=== PATIENT | female | born 1980 | race Two or more races ===

== ENCOUNTER 2017-06-21 22:40 | Emergency (ER) | payer MEDICAID ==
[2017-06-22] MEDS: ALBUTEROL 0.083% (NEB) 2.5 MG/3 ML AMP NEB (02:20)
[2017-06-22] MEDS: IPRATROPIUM (NEB) 0.5 MG/2.5 ML AMP NEB (02:20)
== END 2017-06-22 04:52 | disposition home or self-care (01) ==
LOC: FTE 22:40
DX: J20.9 Acute bronchitis, unspecified (principal)
CPT/HCPCS: 71045; 94664; 99283-25